=== PATIENT | male | born 1995 | race Caucasian/White ===

== ENCOUNTER 2017-01-02 02:19 | Emergency (ER) | payer BC ==
[2017-01-02] MEDS ORDERED: NORMAL SALINE 1000 ML 1,000 ML IV ONE (04:05)
[2017-01-02] MEDS ORDERED: METHYLPREDNISOLONE INJ 125 MG/2 ML SDV IV ONE (04:06)
[2017-01-02] MEDS ORDERED: KETOROLAC TROMETHAMINE INJ/PF 30 MG/1 ML SDV IV ONE (04:06)
--- NOTE | 2017-01-02 04:57 | ER Document Report ---
ED General - General Chief Complaint: Headache >24 hrs old Stated Complaint: HEADACHE Mode of Arrival: Ambulatory Information source: Patient TRAVEL OUTSIDE OF THE [place] IN LAST 30 DAYS: No - HPI Notes: Patient is a 21-year-old male presents to the emergency department with report of headache that he's had every evening for the past week right sided with occasional tearing from the right eye. The patient denies any head injury, and states the headache will completely resolve itself in between episodes. The patient does report some previous mild headaches in the past, and he has a previous visit for headache in the past in the emergency department. The patient reports that he drank alcohol earlier in the evening and one of the night earlier in the week he drank a small amount of alcohol, but he does not drink every day. Patient denies any fever or chills. He reports no head injury. He denies any focal numbness, weakness, paresthesia. No neck stiffness. No sinus pain or discomfort. - Related Data Allergies/Adverse Reactions: acetaminophen [From Vicodin] Adverse Reaction (Mild, Verified 04/20/15 00:25) Nausea hydrocodone bitartrate [From Vicodin] Adverse Reaction (Mild, Verified 04/20/15 00:25) Nausea Past Medical History - General Information source: Patient - Social History Smoking Status: Unknown if Ever Smoked Frequency of alcohol use: Occasional Drug Abuse: None Lives with: Family Family History: Reviewed & Not Pertinent Patient has suicidal ideation: No Patient has homicidal ideation: No Pulmonary Medical History: Reports: Hx Bronchitis, Hx Pneumonia - as child Neurological Medical History: Reports: Hx Seizures - epilepsy Renal/ Medical History: Denies: Hx Peritoneal Dialysis - Immunizations Hx Diphtheria, Pertussis, Tetanus Vaccination: Yes Review of Systems - Review of Systems Notes: REVIEW OF SYSTEMS: CONSTITUTIONAL : Denies fever, chills, or sweats. Denies recent illness. EENT: Denies ear, throat, or mouth pain or symptoms. Denies nasal or sinus congestion or discharge. Denies throat, tongue, or mouth swelling or difficulty swallowing. CARDIOVASCULAR: Denies chest pain. Denies palpitations or racing or irregular heart beat. Denies ankle edema. RESPIRATORY: Denies cough, cold, or chest congestion. Denies shortness of breath, difficulty breathing, or wheezing. GASTROINTESTINAL: Denies abdominal pain or distention. Denies nausea, vomiting , or diarrhea. Denies blood in vomitus, stools, or per rectum. Denies black, tarry stools. Denies constipation. GENITOURINARY: Denies difficulty urinating, painful urination, burning, frequency, blood in urine, or discharge. MUSCULOSKELETAL: Denies back or neck pain or stiffness. Denies joint pain or swelling. SKIN: Denies rash, lesions or sores. HEMATOLOGIC : Denies easy bruising or bleeding. LYMPHATIC: Denies swollen, enlarged glands. NEUROLOGICAL: Denies confusion or altered mental status. Denies passing out or loss of consciousness. Denies dizziness or lightheadedness. Denies weakness or paralysis or loss of use of either side. Denies problems with gait or speech. Denies sensory loss, numbness, or tingling. Denies seizures. PSYCHIATRIC: Denies anxiety or stress. Denies depression, suicidal ideation, or homicidal ideation. ALL OTHER SYSTEMS REVIEWED AND NEGATIVE. Dictation was performed using [employer] voice recognition software Physical Exam - Vital signs Vitals: Temp Pulse Resp BP Pulse Ox 98.4 F 100 18 153/90 H 100 01/02/17 02:33 01/02/17 02:33 01/02/17 02:33 01/02/17 02:33 01/02/17 02:33 - Notes Notes: PHYSICAL EXAMINATION: GENERAL: Well-appearing, well-nourished and in no acute distress. HEAD: Atraumatic, normocephalic. EYES: Pupils equal round and reactive to light, extraocular movements intact, sclera anicteric, conjunctiva are normal. Patient localizes the headache as right frontal in location, but there is no specific sinus tenderness. No erythema or suggestion for shingles or other abnormality. Anterior chambers are within normal limits and are not shallow. Anterior chambers are clear. Gross vision is intact. ENT: Nares patent, oropharynx clear without exudates. Moist mucous membranes. No nasal turbinate swelling. NECK: Normal range of motion, supple without lymphadenopathy LUNGS: Breath sounds clear to auscultation bilaterally and equal. No wheezes rales or rhonchi. HEART: Regular rate and rhythm without murmurs ABDOMEN: Soft, nontender, nondistended abdomen. No guarding, no rebound. No masses appreciated. Musculoskeletal: Normal range of motion, no pitting or edema. No cyanosis. NEUROLOGICAL: Cranial nerves grossly intact. Normal speech, normal gait. Normal sensory, motor exams PSYCH: Normal mood, normal affect. SKIN: Warm, Dry, normal turgor, no rashes or lesions noted. Course - Re-evaluation Re-evalutation: 01/02/17 05:10 Patient was placed on oxygen. Patient drove himself to the emergency department , so the patient was given IV Toradol and Solu-Medrol. Normal saline bolus was given. Question cluster headache given the episodic nature in this white male with report also previous tearing associated with a right sided headache. 01/02/17 06:34 Care turned over to Dr. Vicente. - Vital Signs Vital signs: Temp Pulse Resp BP Pulse Ox 98.4 F 100 18 153/90 H 100 01/02/17 02:33 01/02/17 02:33 01/02/17 02:33 01/02/17 02:33 01/02/17 02:33 - Laboratory Result Diagrams: 01/02/17 05:54 01/02/17 05:54 Discharge - Discharge Clinical Impression: Cluster headache Qualifiers: Headache chronicity pattern: unspecified pattern Intractability: not intractable Qualified Code(s): G44.009 - Cluster headache syndrome, unspecified , not intractable Condition: Stable Disposition: HOME, SELF-CARE Prescriptions: Tramadol HCl 50 mg PO Q4HP PRN #20 tablet PRN Reason: Prochlorperazine Maleate [Compazine 10 mg Tablet] 10 mg PO Q6HP PRN #10 tablet PRN Reason: Prednisone [Deltasone 10 mg Tablet] 10 mg PO ASDIR PRN #21 tablet PRN Reason:
[2017-01-02 06:22] LABS: ABSOLUTE BASOPHILS # (AUTO) 0.1 10^3/uL (0.0-0.2); ABSOLUTE EOSINOPHILS # (AUTO) 0.1 10^3/uL (0.0-0.6); ABSOLUTE LYMPHOCYTES (AUTO) 3.7 10^3/uL (0.5-4.7); ABSOLUTE MONOCYTES (AUTO) 0.8 10^3/uL (0.1-1.4); ABSOLUTE NEUT (AUTO) 4.6 10^3/uL (1.7-8.2); BASOPHILS % (AUTO) 0.6 % (0-2); EOSINOPHILS % (AUTO) 0.8 % (0-6); HEMOGLOBIN 16.4 g/dL (13.5-17.0); HGB HCT DIFFERENCE 3.2; LYMPHOCYTES % (AUTO) 39.8 % (13-45); MEAN CORPUSCULAR HEMOGLOBIN 31.1 pg (27.0-33.4); MEAN CORPUSCULAR HGB CONC 35.7 g/dL (32.0-36.0); MEAN CORPUSCULAR VOLUME 87 fl (80-97); MONOCYTES % (AUTO) 8.3 % (3-13); RED BLOOD COUNT 5.27 10^6/uL (4.35-5.55); RED CELL DISTRIBUTION WIDTH 12.5 % (11.5-14.0); SEGMENTED NEUTROPHILS % (AUTO) 50.5 % (42-78); WHITE BLOOD COUNT 9.2 10^3/uL (4.0-10.5)
[2017-01-02 06:35] LABS: ALANINE AMINOTRANSFERASE 58 U/L (21-72); ALBUMIN 4.8 g/dL (3.5-5.0); ALCOHOL 40 mg/dL (NONE DETECTED); ALKALINE PHOSPHATASE 71 U/L (38-126); ANION GAP 16 (5-19); ASPARTATE AMINO TRANSFERASE 35 U/L (17-59); BILIRUBIN,DIRECT 0.3 mg/dL (0.0-0.4); BLOOD UREA NITROGEN 10 mg/dL (7-20); CARBON DIOXIDE 25 mmol/L (22-30); CHLORIDE 102 mmol/L (98-107); CREATININE RESULT 0.66 mg/dL (0.52-1.25); GLUCOSE 93 mg/dL (75-110); MAGNESIUM 1.8 mg/dL (1.6-2.3); POTASSIUM 4.5 mmol/L (3.6-5.0); SODIUM 142.9 mmol/L (137-145)
[2017-01-02 06:55] LABS: ERYTHROCYTE SEDIMENTATION RATE 4 mm/hr (0-15)
[2017-01-02] MEDS ORDERED: DIVALPROEX SODIUM 250 MG TAB.SR.24H PO ONE (07:48)
[2017-01-02 09:23] VITALS: BP 150/101
== END 2017-01-02 08:40 | disposition home or self-care (01) ==
LOC: ER 02:19
DX: G44.009 Cluster headache syndrome, unspecified, not intractable (principal)
CPT/HCPCS: 99284; 96374; 96375; 36415; 80307; 83735; 85025; 85652; 80053; 80164; 70450; J2930; J1885; J3490; J7030

== ENCOUNTER 2018-12-25 13:31 | Emergency (ER) | payer MEDICAID ==
[2018-12-25] MEDS ORDERED: ONDANSETRON HCL INJ/PF 4 MG/2 ML SDV IV ONE (15:03)
[2018-12-25] MEDS ORDERED: NORMAL SALINE 1000 ML 1,000 ML IV ONE (15:03)
--- NOTE | 2018-12-25 15:05 | ER Document Report ---
ED Medical Screen (RME) - General Chief Complaint: Abdominal Pain Stated Complaint: BACK PAIN Time Seen by Provider: 12/25/18 15:02 Mode of Arrival: Ambulatory Information source: Patient Notes: Patient presents complaining of low back pain and generalized abdominal pain for the past week with nausea. Patient was seen and treated for strep yesterday with amoxicillin. Patient denies any fever. Patient also reports occasional pain that radiates into the scrotum. I have greeted and performed a rapid initial assessment of this patient. A comprehensive ED assessment and evaluation of the patient, analysis of test results and completion of the medical decision making process will be conducted by additional ED providers. TRAVEL OUTSIDE OF THE [place] IN LAST 30 DAYS: No - Related Data Allergies/Adverse Reactions: acetaminophen [From Vicodin] Adverse Reaction (Mild, Verified 12/25/18 13:35) Nausea hydrocodone bitartrate [From Vicodin] Adverse Reaction (Mild, Verified 12/25/18 13:35) Nausea Past Medical History Pulmonary Medical History: Reports: Hx Bronchitis, Hx Pneumonia - as child Neurological Medical History: Reports: Hx Seizures - epilepsy Renal/ Medical History: Denies: Hx Peritoneal Dialysis - Immunizations Hx Diphtheria, Pertussis, Tetanus Vaccination: Yes Physical Exam - Vital signs Vitals: Temp Pulse Resp BP Pulse Ox 98.2 F 113 H 20 149/93 H 99 12/25/18 14:09 12/25/18 14:09 12/25/18 14:12/25/18 14:09 12/25/18 14:09 - Cardiovascular Rhythm: Tachycardia Heart sounds: S1 appreciated, S2 appreciated - Abdominal Tenderness: Tender - Generalized abdomen Course - Vital Signs Vital signs: Temp Pulse Resp BP Pulse Ox 98.2 F 113 H 20 149/93 H 99 12/25/18 14:09 12/25/18 14:09 12/25/18 14:12/25/18 14:12/25/18 14:09
[2018-12-25 15:45] LABS: ABSOLUTE EOSINOPHILS # (AUTO) 0.1 10^3/uL (0.0-0.6); ABSOLUTE LYMPHOCYTES (AUTO) 3.1 10^3/uL (0.5-4.7); ABSOLUTE MONOCYTES (AUTO) 1.2 10^3/uL (0.1-1.4); ABSOLUTE NEUT (AUTO) 2.8 10^3/uL (1.7-8.2); BASOPHILS % (AUTO) 0.7 % (0-2); HEMATOCRIT 45.9 % (37.9-51.0); HEMOGLOBIN 16.2 g/dL (13.5-17.0); LYMPHOCYTES % (AUTO) 42.6 % (13-45); MEAN CORPUSCULAR HGB CONC 35.4 g/dL (32.0-36.0); MEAN CORPUSCULAR VOLUME 88 fl (80-97); MONOCYTES % (AUTO) 16.1 % (3-13); PLATELET COUNT 285 10^3/uL (150-450); RED BLOOD COUNT 5.23 10^6/uL (4.35-5.55); RED CELL DISTRIBUTION WIDTH 12.3 % (11.5-14.0); SEGMENTED NEUTROPHILS % (AUTO) 39.6 % (42-78); TOTAL CELLS COUNTED % (AUTO) 100 %; WHITE BLOOD COUNT 7.2 10^3/uL (4.0-10.5)
[2018-12-25 15:58] LABS: APPEARANCE,URINE CLEAR; BILIRUBIN,URINE NEGATIVE (NEGATIVE); COLOR,URINE YELLOW; GLUCOSE, URINE NEGATIVE (NEGATIVE); KETONES,URINE TRACE mg/dL (NEGATIVE); LEUKOCYTE ESTERASE,URINE NEGATIVE (NEGATIVE); NITRITE,URINE NEGATIVE (NEGATIVE); PROTEIN,URINE 30 mg/dL (NEGATIVE); URINE SPECIFIC GRAVITY 1.021
[2018-12-25 16:06] LABS: ALANINE AMINOTRANSFERASE 121 U/L (21-72); ALBUMIN 4.7 g/dL (3.5-5.0); ALKALINE PHOSPHATASE 93 U/L (38-126); ANION GAP 16 (5-19); ASPARTATE AMINO TRANSFERASE 62 U/L (17-59); BILIRUBIN,DIRECT 0.3 mg/dL (0.0-0.4); BLOOD UREA NITROGEN 8 mg/dL (7-20); CARBON DIOXIDE 23 mmol/L (22-30); CHLORIDE 104 mmol/L (98-107); GLUCOSE 98 mg/dL (75-110); LIPASE 43.7 U/L (23-300); POTASSIUM 4.8 mmol/L (3.6-5.0); SODIUM 142.6 mmol/L (137-145); TOTAL PROTEIN 8.3 g/dL (6.3-8.2)
[2018-12-25 17:29] LABS: CHLAM PCR NOT DETECTED (NOT DETECT); GON PCR NOT DETECTED (NOT DETECT)
--- NOTE | 2018-12-25 18:57 | RADIOLOGY REPORT (SQ) ---
EXAM DESCRIPTION: U/S SCROTUM W/DOPPLER COMPLETED DATE/TIME: 12/25/2018 6:41 pm REASON FOR STUDY: scrotal pain COMPARISON: None. TECHNIQUE: Static and realtime lauren scale imaging of the scrotum and testes. Selected color Doppler and spectral images recorded to document blood flow. LIMITATIONS: None. FINDINGS: RIGHT: TESTICLE: Normal size. Normal echotexture. Normal blood flow. No mass. EPIDIDYMIS: Normal. HYDROCELE OR VARICOCELE: No. HERNIA OR EXTRA-TESTICULAR MASS: No. OTHER: No other significant finding. LEFT: TESTICLE: Normal size. Normal echotexture. Normal blood flow. No mass. EPIDIDYMIS: Normal. HYDROCELE OR VARICOCELE: Small left varicocele. No hydrocele. HERNIA OR EXTRA-TESTICULAR MASS: No. OTHER: No other significant finding. IMPRESSION: Small left varicocele.. NO EVIDENCE OF TESTICULAR MASS OR TORSION. TECHNICAL DOCUMENTATION: JOB ID: [id number] [place]-72 2010 [employer]- All Rights Reserved Reading location - IP/workstation name: [email or web address]
--- NOTE | 2018-12-25 19:28 | ER Document Report ---
ED General - General Chief Complaint: Abdominal Pain Stated Complaint: BACK PAIN Time Seen by Provider: 12/25/18 15:02 Primary Care Provider: HALI MILLAN MD [Primary Care Provider] - Follow up as needed Mode of Arrival: Ambulatory TRAVEL OUTSIDE OF THE [place] IN LAST 30 DAYS: No - HPI Notes: Patient is a 23-year-old male who presents to the emergency department for evaluation of abdominal pain and scrotal pain. He states it has been present for about a week, the scrotal pain started recently. He was recently diagnosed with strep throat. He states his son has it. He did not have a swab. He had one episode of emesis yesterday. Normal bowel movements. Normal urination, he states he may be urinating a little more frequently. He states he is still eating and drinking. He has some pain that he says is worse on the right side of his abdomen, but states there are no aggravating or relieving factors. - Related Data Allergies/Adverse Reactions: acetaminophen [From Vicodin] Adverse Reaction (Mild, Verified 12/25/18 13:35) Nausea hydrocodone bitartrate [From Vicodin] Adverse Reaction (Mild, Verified 12/25/18 13:35) Nausea Past Medical History - General Information source: Patient - Social History Smoking Status: Current Every Day Smoker Chew tobacco use (# tins/day): No Frequency of alcohol use: Social Drug Abuse: None Family History: Reviewed & Not Pertinent Patient has suicidal ideation: No Patient has homicidal ideation: No - Past Medical History Cardiac Medical History: Reports: Hx Hypercholesterolemia, Hx Hypertension Pulmonary Medical History: Reports: Hx Bronchitis, Hx Pneumonia - as child Neurological Medical History: Reports: Hx Seizures - epilepsy Renal/ Medical History: Denies: Hx Peritoneal Dialysis - Immunizations Hx Diphtheria, Pertussis, Tetanus Vaccination: Yes Review of Systems - Review of Systems Constitutional: No symptoms reported EENT: See HPI Cardiovascular: No symptoms reported Respiratory: No symptoms reported Gastrointestinal: See HPI Genitourinary: No symptoms reported Male Genitourinary: No symptoms reported Musculoskeletal: No symptoms reported Skin: No symptoms reported Neurological/Psychological: No symptoms reported Physical Exam - Vital signs Vitals: Temp Pulse Resp BP Pulse Ox 98.2 F 113 H 20 149/93 H 99 12/25/18 14:09 12/25/18 14:09 12/25/18 14:09 12/25/18 14:09 12/25/18 14:09 - Notes Notes: Vital signs reviewed, please refer to chart. Patient is normocephalic, atraumatic. Pupils equal round, reactive to light. Neck is supple without meningismus. Heart is regular rate and rhythm. Lungs are clear to auscultation bilaterally. Abdomen is soft, diffusely tender but no rebound or guarding, normoactive bowel sounds throughout. Extremities without cyanosis, clubbing, edema. Peripheral pulses are equal. Skin is warm and dry. Patient is awake, alert, neurological exam is nonfocal. Examination of the genitalia reveals 2 descended testicles. He has diffuse testicular tenderness bilaterally. He is not focally tender over the epididymis. No erythema or overlying lesions. No inguinal hernias that I can palpate. Intact cremasteric reflex. Course - Re-evaluation Re-evalutation: 12/25/18 19:21 Patient presents to the emergency department for evaluation. Laboratory investigations, imaging ordered as through triage. No significant positive findings. Did have a very mild elevation in his but only AST and ALT. Ultr asound failed to reveal any acute signs of torsion or infection. Urinalysis was unremarkable. GC chlamydia unremarkable. At this point I do not have a clear etiology for this patient's abdominal or scrotal pain. He is still eating and drinking. Serial abdominal exams are benign. It was explained to the patient that any worsening or persistence of his symptoms to prompt him to return to the emergency department. He voiced understanding to this and was discharged. 12/25/18 19:29 - Vital Signs Vital signs: Temp Pulse Resp BP Pulse Ox 98.2 F 113 H 20 149/93 H 99 12/25/18 14:09 12/25/18 14:09 12/25/18 14:09 12/25/18 14:09 12/25/18 14:09 - Laboratory Result Diagrams: 12/25/18 15:32 12/25/18 15:32 Laboratory results interpreted by me: 12/25/18 12/25/18 12/25/18 15:23 15:32 15:32 Seg Neutrophils % 39.6 L Monocytes % 16.1 H AST 62 H ALT 121 H Total Protein 8.3 H Urine Protein 30 H Urine Ketones TRACE H Urine Urobilinogen 4.0 H Discharge - Discharge Clinical Impression: Right lower quadrant abdominal pain, Testicular pain Abdominal pain Qualifiers: Abdominal location: right upper quadrant Qualified Code(s): R10.11 - Right upper quadrant pain Condition: Stable Disposition: HOME, SELF-CARE Instructions: Abdominal Pain ([facility]) Additional Instructions: No clear cause was found for your pain today. If your pain persists, or certainly if it worsens, return to the emergency department. Otherwise follow- up with primary care next week. Forms: Elevated Blood Pressure Referrals: HALI MILLAN MD [Primary Care Provider] - Follow up as needed
[2018-12-25 19:57] VITALS: BP 142/89
== END 2018-12-25 19:57 | disposition home or self-care (01) ==
LOC: ER 13:31
DX: R10.31 Right lower quadrant pain (principal); N50.82 Scrotal pain; R10.11 Right upper quadrant pain; R10.9 Unspecified abdominal pain; F17.200 Nicotine dependence, unspecified, uncomplicated; I10 Essential (primary) hypertension
CPT/HCPCS: 99284; 96361; 96374; 36415; 83690; 85025; 80053; 81001; 87491; 87591; 76870; 93976; J2405; J7030

== ENCOUNTER 2019-01-11 11:36 | Day surgery (SDC) | payer MEDICAID ==
[~2019-01-11 11:36] MED LIST: PROPOFOL INJ 200 MG/20 ML VIAL IV ONE
[2019-01-11 12:38] VITALS: BP 145/78
--- NOTE | 2019-01-11 12:53 | Operative Report ---
Operative Report DATE OF SURGERY: 01/11/19 Operative Report: The risks benefits and alternatives of the procedure explained to the patient in detail and informed consent is obtained.A GIF Olympus video scope was inserted into the patient's mouth and hypopharynx, the esophagus is identified intubated and insufflated ,the scope was then advanced through the esophagus stomach and duodenum, retroflexion maneuver is done, the esophagus stomach and first and second portions of the duodenum examined. PREOPERATIVE DIAGNOSIS: Gastroesophageal reflux disease. Family history of esophageal cancer POSTOPERATIVE DIAGNOSIS: Esophagitis versus Crowe's status post biopsy. Ga stritis status post biopsy OPERATION: EGD with biopsy SURGEON: JHOAN RODRIGUEZ ANESTHESIA: LMAC TISSUE REMOVED OR ALTERED: As noted above. COMPLICATIONS: None. ESTIMATED BLOOD LOSS: None. INTRAOPERATIVE FINDINGS: As noted above. PROCEDURE: Patient tolerated the procedure well. No immediate postprocedure complications are noted. Patient discharged in good condition. Discharge date 01/11/2019. Discharge diet: Regular. Discharge activity: Regular. 2 to 3-week follow-up to discuss findings. Patient is instructed to call the office or proceed to the emergency room should there be any further questions. Wait on the pathology.
== END 2019-01-11 12:45 | disposition home or self-care (01) ==
LOC: END 11:36
PROVIDERS: ATTEND Internal Medicine Gastroenterology
DX: K21.0 Gastro-esophageal reflux disease with esophagitis (principal); K29.50 Unspecified chronic gastritis without bleeding; Z80.0 Family history of malignant neoplasm of digestive organs; F17.210 Nicotine dependence, cigarettes, uncomplicated; Z79.899 Other long term (current) drug therapy; Z88.5 Allergy status to narcotic agent
CPT/HCPCS: 43239; 88342 ×2; 88305 ×2; J2704

== ENCOUNTER 2019-03-08 07:42 | Day surgery (SDC) | payer BC, MEDICAID ==
[2019-03-08] MEDS ORDERED: PROPOFOL INJ 200 MG/20 ML VIAL IV ONE (08:15)
--- NOTE | 2019-03-08 08:29 | Operative Report ---
Operative Report DATE OF SURGERY: 03/08/19 Operative Report: The risks benefits and alternatives of the procedure explained to the patient in detail and informed consent is obtained.A GIF Olympus video scope was inserted into the patient's mouth and hypopharynx, the esophagus is identified intubated and insufflated, the scope was then advanced through the esophagus stomach and duodenum ,retroflexion maneuver is done, the esophagus stomach and first and second portions of the duodenum examined. PREOPERATIVE DIAGNOSIS: Crowe's esophagus POSTOPERATIVE DIAGNOSIS: Crowe's esophagus status post radiofrequency ablation OPERATION: EGD with radiofrequency ablation SURGEON: JHOAN RODRIGUEZ ANESTHESIA: LMAC TISSUE REMOVED OR ALTERED: None. COMPLICATIONS: None. ESTIMATED BLOOD LOSS: None. INTRAOPERATIVE FINDINGS: As noted above. PROCEDURE: Patient tolerated the procedure well. No immediate postprocedure complications are noted. Patient is discharged in good condition. Discharge date 03/08/2019. Discharge diet: Regular. Discharge activity: Regular. 2 to 3-week follow-up to discuss findings. 1 year surveillance EGD.
[2019-03-08 08:48] VITALS: BP 148/80
== END 2019-03-08 09:00 | disposition home or self-care (01) ==
LOC: END 07:42
PROVIDERS: ATTEND Internal Medicine Gastroenterology
DX: K22.719 Barrett's esophagus with dysplasia, unspecified (principal); I10 Essential (primary) hypertension; G40.909 Epilepsy, unspecified, not intractable, without status epilepticus; F17.210 Nicotine dependence, cigarettes, uncomplicated; Z79.899 Other long term (current) drug therapy
CPT/HCPCS: 43270; J2704

== ENCOUNTER 2020-02-29 14:08 | Emergency (ER) | payer BC, MEDICAID ==
--- NOTE | 2020-02-29 14:36 | ER Document Report ---
ED Medical Screen (RME) - General Chief Complaint: Abdominal Pain Stated Complaint: ABDOMINAL PAIN,LIGHTHEADED Time Seen by Provider: 02/29/20 14:29 Primary Care Provider: LAYA GLYNN FNP-C [Primary Care Provider] - Follow up as needed TRAVEL OUTSIDE OF THE [place] IN LAST 30 DAYS: No - HPI Notes: 02/29/20 14:34 24-year-old male with a history of hypertension and GERD presents to the emergency room for complaints of abdominal pain for the last 4 days with watery stool. States he has generalized abdominal pain comes and goes, worse after eating. Patient states that he has intermittent bloating along with his abdominal pain. Tried an antidiarrheal over the weekend without relief. Denies a history of IBS or Crohn's. Denies any fevers or chills, denies any new foods, medication or travel outside of the country. Does not have a primary care provider to follow-up with. Has been eating a bland diet but noticed before he ate a bland diet that his symptoms are worse after eating fatty foods. Patient does take omeprazole daily. I have greeted and performed a rapid initial assessment of this patient. A comprehensive ED assessment and evaluation of the patient, analysis of test results and completion of the medical decision making process will be conducted by additional ED providers. PHYSICAL EXAMINATION: GENERAL: Well-appearing, well-nourished and in no acute distress. NECK: Normal range of motion CV: s1, s2 regular LUNGS: No respiratory distress abd: generalized abd pain - Related Data Allergies/Adverse Reactions: hydrocodone bitartrate [From Vicodin] Adverse Reaction (Mild, Verified 03/01/19 13:59) Nausea Home Medications: depakote, omeprazole, metoprolol. Past Medical History - Social History Frequency of alcohol use: Rare Drug Abuse: None - Past Medical History Cardiac Medical History: Reports: Hx Hypercholesterolemia, Hx Hypertension Denies: Hx Coronary Artery Disease, Hx Heart Attack Pulmonary Medical History: Denies: Hx Asthma, Hx Bronchitis, Hx COPD, Hx Pneumonia Neurological Medical History: Reports: Hx Seizures - EPILEPSY. Denies: Hx Cerebrovascular Accident Renal/ Medical History: Denies: Hx Peritoneal Dialysis Musculoskeltal Medical History: Denies Hx Arthritis - Immunizations Hx Diphtheria, Pertussis, Tetanus Vaccination: Yes - UNSURE WHEN Physical Exam - Vital signs Vitals: Temp Pulse Resp BP Pulse Ox 98.4 F 94 16 168/98 H 99 02/29/20 14:18 02/29/20 14:18 02/29/20 14:18 02/29/20 14:18 02/29/20 14:18 Course - Vital Signs Vital signs: Temp Pulse Resp BP Pulse Ox 98.4 F 94 16 168/98 H 99 02/29/20 14:18 02/29/20 14:18 02/29/20 14:18 02/29/20 14:18 02/29/20 14:18 Doctor's Discharge - Discharge Referrals: LAYA GLYNN, [employer] ENGINEER-C [Primary Care Provider] - Follow up as needed
[2020-02-29 15:10] LABS: ABSOLUTE EOSINOPHILS # (AUTO) 0.1 10^3/uL (0.0-0.6); ABSOLUTE LYMPHOCYTES (AUTO) 3.7 10^3/uL (0.5-4.7); ABSOLUTE MONOCYTES (AUTO) 1.1 10^3/uL (0.1-1.4); ABSOLUTE NEUT (AUTO) 5.4 10^3/uL (1.7-8.2); BASOPHILS % (AUTO) 0.4 % (0-2); EOSINOPHILS % (AUTO) 1.1 % (0-6); HEMATOCRIT 46.3 % (37.9-51.0); HEMOGLOBIN 16.2 g/dL (13.5-17.0); LYMPHOCYTES % (AUTO) 35.6 % (13-45); MEAN CORPUSCULAR HEMOGLOBIN 30.6 pg (27.0-33.4); MEAN CORPUSCULAR HGB CONC 34.9 g/dL (32.0-36.0); MEAN CORPUSCULAR VOLUME 88 fl (80-97); MONOCYTES % (AUTO) 10.7 % (3-13); PLATELET COUNT 325 10^3/uL (150-450); RED BLOOD COUNT 5.29 10^6/uL (4.35-5.55); RED CELL DISTRIBUTION WIDTH 12.4 % (11.5-14.0); SEGMENTED NEUTROPHILS % (AUTO) 52.2 % (42-78); TOTAL CELLS COUNTED % (AUTO) 100 %; WHITE BLOOD COUNT 10.3 10^3/uL (4.0-10.5)
[2020-02-29 15:15] LABS: APPEARANCE,URINE CLEAR; BILIRUBIN,URINE NEGATIVE (NEGATIVE); COLOR,URINE YELLOW; GLUCOSE, URINE NEGATIVE (NEGATIVE); KETONES,URINE 20 mg/dL (NEGATIVE); LEUKOCYTE ESTERASE,URINE NEGATIVE (NEGATIVE); NITRITE,URINE NEGATIVE (NEGATIVE); PROTEIN,URINE 30 mg/dL (NEGATIVE); URINE SPECIFIC GRAVITY 1.015; UROBILINOGEN,URINE NEGATIVE mg/dL (<2.0)
[2020-02-29 15:25] LABS: ALBUMIN 4.8 g/dL (3.5-5.0); ALKALINE PHOSPHATASE 92 U/L (38-126); ANION GAP 11 (5-19); ASPARTATE AMINO TRANSFERASE 45 U/L (17-59); BILIRUBIN,DIRECT 0.1 mg/dL (0.0-0.4); BLOOD UREA NITROGEN 10 mg/dL (7-20); CARBON DIOXIDE 24 mmol/L (22-30); CHLORIDE 101 mmol/L (98-107); GLUCOSE 85 mg/dL (75-110); POTASSIUM 4.7 mmol/L (3.6-5.0); TOTAL PROTEIN 8.5 g/dL (6.3-8.2)
--- NOTE | 2020-02-29 19:26 | ER Document Report ---
Doctor's Note Notes: 02/29/20 19:26 Radiologist called stating there are abnormalities on patient's abdomen pelvis CT, charge nurse made aware of patient's need to be moved to a room for full evaluation in the back by a physician.
--- NOTE | 2020-02-29 19:33 | RADIOLOGY REPORT (SQ) ---
EXAM DESCRIPTION: CT ABD/PELVIS WITH IV ONLY IMAGES COMPLETED DATE/TIME: 02/29/2020 7:04 pm REASON FOR STUDY: diffuse abd pain x4days, watery stools. no fevers COMPARISON: None. TECHNIQUE: CT scan of the abdomen and pelvis performed using helical scanning technique with dynamic intravenous contrast injection. No oral contrast. Images reviewed with lung, soft tissue, and bone windows. Reconstructed coronal and sagittal MPR images reviewed. Delayed images for evaluation of the urinary system also acquired. All images stored on PACS. All CT scanners at this facility use dose modulation, iterative reconstruction, and/or weight based d osing when appropriate to reduce radiation dose to as low as reasonably achievable (ALARA). [facility]: Dose Right [facility]: CareDose [facility]: Dose Right [facility]: Teradose 4D [facility]: BrainMass CONTRAST TYPE AND DOSE: contrast/concentration: Isovue 350.00 mmol/ml; Total Contrast Delivered: 100 .0 ml; Total Saline Delivered: 61.6 ml RENAL FUNCTION: None required. The patient is less than 50 years old. RADIATION DOSE: CT Rad equipment meets quality standard of care and radiation dose reduction techniq ues were employed. CTDIvol: 16.8 - 20.0 mGy. DLP: 2258 mGy-cm.. LIMITATIONS: None. FINDINGS: LOWER CHEST: No significant findings. No nodules or infiltrates. LIVER: Fatty liver. No dilated ducts. The hepatic and portal veins are patent. SPLEEN: Normal size. No focal lesions. PANCREAS: No masses. No significant calcifications. No adjacent inflammation or peripancreatic fluid collections. Pancreatic duct not dilated. GALLBLADDER: No identified stones by CT criteria. No inflammatory changes to suggest cholecystitis. ADRENAL GLANDS: No significant masses or asymmetry. RIGHT KIDNEY AND URETER: No solid masses. No significant calcifications. No hydronephrosis or hyd roureter. LEFT KIDNEY AND URETER: No solid masses. No significant calcifications. No hydronephrosis or hydr oureter. AORTA AND VESSELS: No aneurysm. No dissection. Renal arteries, SMA, celiac without stenosis. RETROPERITONEUM: Multiple borderline to mildly prominent mesenteric lymph nodes with some of the lar gest measuring 18.0 mm in short axis diameter. No hemorrhage. BOWEL AND PERITONEAL CAVITY: Abnormal appearance to the terminal ileum in the right lower quadrant o f the abdomen with enhancement of the wall and and marked thickening. Colonic diverticulosis, more so in the sigmoid colon, without evidence of diverticulitis. No free fl uid. APPENDIX: Normal. PELVIS: Prostate gland measures 4.3 cm in diameter. Multiple nonenlarged bilateral superficial femor al triangle lymph nodes. Superficial bilateral triangle lymph nodes. Free fluid. Bladder normal. ABDOMINAL WALL: No masses. No hernias. BONES: No significant or acute findings. OTHER: No other significant finding. IMPRESSION: 1. Abnormal appearing terminal ileum which demonstrates marked diffuse thickened wall w ith enhancement. Multiple borderline to mildly prominent mesenteric lymph nodes. Differential diagn osis for these findings include inflammatory/infectious etiologies, with lymphoproliferative disorder s not entirely excluded. Correlation suggested. 2. Colonic diverticulosis, more so in the sigmoid colon without evidence of diverticulitis. 3. Fatty liver. 4. Additional findings as above. COMMENT: 1. The results of this examination were discussed with emergency department provider on and 19:26 hours. TECHNICAL DOCUMENTATION: JOB ID: [id number] Quality ID # [id number]: Final reports with documentation of one or more dose reduction techniques (e.g., Au tomated exposure control, adjustment of the mA and/or kV according to patient size, use of iterative reconstruction technique) 2010 [employer]- All Rights Reserved Reading location - IP/workstation name: [email or web address]
--- NOTE | 2020-02-29 20:50 | ER Document Report ---
ED General - General Chief Complaint: Abdominal Pain Stated Complaint: ABDOMINAL PAIN,LIGHTHEADED Time Seen by Provider: 02/29/20 14:29 Primary Care Provider: LAYA GLYNN FNP-C [Primary Care Provider] - Follow up as needed Information source: Patient Notes: 02/29/20 14:20 - ED Nursing Note by KELTON DARBY Accsuzi Num: [id number] : 1995 Patient Age: 24 Pt presents to the ED for c/o abd pain. Pt reports he started with diarrhea and abd cramping 5 days ago. Reports taking anti-diarrheal 3days ago. Pt states he has been having watery stools despite medication. Last BM this morning he states was scant and still watery. Reports c/o "bloating" in his epigastric region and 'gas pains all over' his abdomen; reports pain is exacerbated after eating. Denies any nausea or vomiting. Pt is A&Ox4, breaths e/u, NAD, well- appearing. Pt reports prior h/o similar sxs he states resolved after 2wks, pt did not seek medical care at that time. my notes 24-year-old male arrives with chief complaint of having 5 days of crampy bilateral upper abdominal pains associated with diarrhea. He reports this occurred 2 months ago and lasted for 2 weeks and self resolved. He has a history of GERD and was seen by [facility] and had a camera test that he swallowed in 2019 to evaluate his intestines. He reports when he had a ntibiotics then he had diarrhea. Patient denies any recent antibiotics. His CT today reveals fatty liver and diverticular disease and mesenteric lymph nodes as well as terminal ileus thick with question of inflammatory disease. Patient reports his symptoms are worse with food. Patient does have ketones on his urine and total protein are higher. Patient denies any history of Crohn's disease or inflammatory bowel disease. His cousin does have Crohn's disease. Patient denies having any snakes turtles lizards or other reptiles. He also denies having any birds. He works at [employer]. TRAVEL OUTSIDE OF THE [place] IN LAST 30 DAYS: No - HPI Onset: Last week Onset/Duration: Sudden, Persistent Quality of pain: Achy Severity: Mild Pain Level: 1 Associated symptoms: None Exacerbated by: Food Relieved by: Denies Similar symptoms previously: Yes Recently seen / treated by doctor: No - Related Data Allergies/Adverse Reactions: hydrocodone bitartrate [From Vicodin] Adverse Reaction (Mild, Verified 03/01/19 13:59) Nausea Home Medications: depakote, omeprazole, metoprolol. Past Medical History - General Information source: Patient - Social History Smoking Status: Current Every Day Smoker Cigarette use (# per day): Yes Chew tobacco use (# tins/day): No Smoking Education Provided: Yes Frequency of alcohol use: Rare Drug Abuse: None Lives with: Family Family History: Reviewed & Not Pertinent Patient has suicidal ideation: No Patient has homicidal ideation: No - Past Medical History Cardiac Medical History: Reports: Hx Hypercholesterolemia, Hx Hypertension Denies: Hx Coronary Artery Disease, Hx Heart Attack Pulmonary Medical History: Denies: Hx Asthma, Hx Bronchitis, Hx COPD, Hx Pneumonia Neurological Medical History: Reports: Hx Seizures - EPILEPSY. Denies: Hx Cerebrovascular Accident Renal/ Medical History: Denies: Hx Peritoneal Dialysis Musculoskeletal Medical History: Denies Hx Arthritis - Immunizations Hx Diphtheria, Pertussis, Tetanus Vaccination: Yes - UNSURE WHEN Review of Systems - Review of Systems Constitutional: No symptoms reported EENT: No symptoms reported Cardiovascular: No symptoms reported Respiratory: No symptoms reported Gastrointestinal: See HPI, Abdomen distended, Abdominal pain, Diarrhea, Other - Gas eructation and and flatulence Genitourinary: No symptoms reported Male Genitourinary: No symptoms reported Musculoskeletal: No symptoms reported Skin: No symptoms reported Hematologic/Lymphatic: No symptoms reported Neurological/Psychological: No symptoms reported Physical Exam - Vital signs Vitals: Temp Pulse Resp BP Pulse Ox 98.4 F 94 16 168/98 H 99 02/29/20 14:18 02/29/20 14:18 02/29/20 14:18 02/29/20 14:18 02/29/20 14:18 Interpretation: Hypertensive - General General appearance: Appears well - HEENT Head: Normocephalic, Atraumatic Eyes: Normal Pupils: PERRL Mouth/Lips: Normal Mucous membranes: Normal Pharynx: Normal Neck: Normal - Respiratory Respiratory status: No respiratory distress Chest status: Nontender Breath sounds: Normal Chest palpation: Normal - Cardiovascular Rhythm: Regular Heart sounds: Normal auscultation Murmur: No - Abdominal Inspection: Normal Distension: Distended Bowel sounds: Hyperactive Tenderness: Tender Organomegaly: No organomegaly - Rectal Hemorrhoids: Other - deferrwed - Genitourinary Scrotum: Other - deferred - Back Back: Normal - Extremities General upper extremity: Normal inspection, Nontender, Normal color, Normal ROM, Normal temperature General lower extremity: Normal inspection, Nontender, Normal color, Normal ROM, Normal temperature, Normal weight bearing. No: Scott's sign - Neurological Neuro grossly intact: Yes Cognition: Normal Orientation: AAOx4 [place] Scale Eye Opening: Spontaneous [place] Scale Verbal: Oriented [place] Scale Motor: Obeys Commands [place] Scale Total: 15 Speech: Normal Motor strength normal: LUE, RUE, LLE, RLE Sensory: Normal - Psychological Associated symptoms: Normal affect - Skin Skin Temperature: Warm Skin Moisture: Dry Course - Vital Signs Vital signs: Temp Pulse Resp BP Pulse Ox 98.4 F 94 16 168/98 H 99 02/29/20 14:18 02/29/20 14:18 02/29/20 14:18 02/29/20 14:18 02/29/20 14:18 - Laboratory Result Diagrams: 02/29/20 14:53 02/29/20 14:53 Laboratory results interpreted by me: 02/29/20 02/29/20 14:53 14:53 Sodium 136.4 L ALT 80 H Total Protein 8.5 H Urine Protein 30 H Urine Ketones 20 H Urine Ascorbic Acid 40 H - Diagnostic Test Radiology reviewed: Reports reviewed Critical Care Note - Critical Care Note Total time excluding time spent on procedures (mins): 60 Discharge - Discharge Clinical Impression: Ileus, unspecified, Fatty liver Hypertension Qualifiers: Hypertension type: unspecified Qualified Code(s): I10 - Essential (primary) hypertension Condition: Good Disposition: HOME, SELF-CARE Additional Instructions: Follow-up with [facility] here in [facility]; return to ER as needed take medicines as directed avoid alcohol when t aking Flagyl and Cipro. Make sure you take your metoprolol for your high blood pressure. Pressure was high today in the ER. Also take Questran twice a day as needed for diarrhea but try not to take it with the Flagyl or Cipro it will absorb this. Also take simethicone for abdominal gas. Take this on a as needed basis.; Prescriptions: Ciprofloxacin HCl [Cipro 500 mg Tablet] 500 mg PO BID #20 tablet Metronidazole [Flagyl 500 mg Tablet] 500 mg PO BID #10 tablet Simethicone [Gas Relief 80] 80 mg PO TID PRN #20 cap PRN Reason: Cholestyramine [Questran 4 gm Packet] 4 gm PO MEALSHS PRN 5 Days #10 packet PRN Reason: Diarrhea Referrals: LAYA GLYNN, [facility] [Primary Care Provider] - Follow up as needed
[2020-02-29 21:22] VITALS: BP 137/96
== END 2020-02-29 21:22 | disposition home or self-care (01) ==
LOC: ER 14:08
DX: K56.7 Ileus, unspecified (principal); K76.0 Fatty (change of) liver, not elsewhere classified; R10.84 Generalized abdominal pain; R19.7 Diarrhea, unspecified; E78.00 Pure hypercholesterolemia, unspecified; I10 Essential (primary) hypertension; F17.210 Nicotine dependence, cigarettes, uncomplicated
CPT/HCPCS: 36415; 74177; 80053; 81001; 83690; 85025; 99285

== ENCOUNTER → 2020-09-14 | Outpatient (CLI) | payer MEDICAID ==
--- NOTE | 2020-09-14 12:13 | RADIOLOGY REPORT (SQ) ---
EXAM DESCRIPTION: NM HIDA SCAN WITH CCK IMAGES COMPLETED DATE/TIME: 09/14/2020 9:41 am REASON FOR STUDY: UNSPECIFIED ABDOMINAL PAIN R10.9 UNSPECIFIED ABDOMINAL PAIN COMPARISON: None. RADIONUCLIDE AND DOSE: DOSAGE RADIONUCLIDE: 5.41 millicuries Tc99m Mebrofenin. DOSAGE CCK: 2.4 micrograms. DOSAGE MORPHINE: Not required. The route of agent administration: Intravenous TECHNIQUE: Serial imaging right upper quadrant up to 60 minutes following injection of radionuclide. CCK injected after gallbladder visualized. LIMITATIONS: None. FINDINGS: LIVER: Normal visualization without areas of photopenia. INTRA AND EXTRAHEPATIC BILE DUCTS: Normal accumulation of activity. GALLBLADDER: Normal visualization. Calculated Ejection Fraction of 27%. Below the normal value of 35 % or greater. PHYSICAL RESPONSE: Patients presenting complaint was not reproduced. OTHER: No other significant finding. IMPRESSION: LOW GALLBLADDER EJECTION FRACTION. EVIDENCE FOR BILIARY DYSKINESIS. NO CYSTIC OR COMMO N DUCT OBSTRUCTION. TECHNICAL DOCUMENTATION: JOB ID: [id number] 2010 [employer]- All Rights Reserved Reading location - IP/workstation name: [email or web address]
== END ==
LOC: RAD 07:53
PROVIDERS: ATTEND Nurse Practitioner Primary Care
DX: K82.8 Other specified diseases of gallbladder (principal); R10.9 Unspecified abdominal pain
CPT/HCPCS: 78227; J2805; A9537; Q9969

== ENCOUNTER 2020-09-27 19:48 | Emergency (ER) | payer MEDICAID ==
[2020-09-27] MEDS ORDERED: ONDANSETRON HCL INJ/PF 4 MG/2 ML SDV IV ONE (19:56)
--- NOTE | 2020-09-27 19:58 | ER Document Report ---
ED Medical Screen (RME) - General Stated Complaint: LOWER BACK PAIN Time Seen by Provider: 09/27/20 19:52 Primary Care Provider: LAYA GLYNN FNP-C [Primary Care Provider] - Follow up as needed Notes: Presents complaining of left flank pain that radiates around to the left side and occasionally to the abdomen. Patient reports pain started yesterday. Patient reports nausea without vomiting. Patient denies any urinary symptoms. Patient has underlying history of hypertension, GERD, epilepsy and fatty liver. I have greeted and performed a rapid initial assessment of this patient. A comprehensive ED assessment and evaluation of the patient, analysis of test results and completion of the medical decision making process will be conducted by additional ED providers. TRAVEL OUTSIDE OF THE [place] IN LAST 30 DAYS: No - Related Data Allergies/Adverse Reactions: hydrocodone bitartrate [From Vicodin] Adverse Reaction (Mild, Verified 08/11/20 10:06) Nausea Past Medical History - Past Medical History Cardiac Medical History: Reports: Hx Hypercholesterolemia, Hx Hypertension Denies: Hx Coronary Artery Disease, Hx Heart Attack Pulmonary Medical History: Denies: Hx Asthma, Hx Bronchitis, Hx COPD, Hx Pneumonia Neurological Medical History: Reports: Hx Seizures - EPILEPSY 16 YEARS AGO WAS LAST SEIZURE. Denies: Hx Cerebrovascular Accident Renal/ Medical History: Denies: Hx Peritoneal Dialysis Musculoskeltal Medical History: Denies Hx Arthritis - Immunizations Hx Diphtheria, Pertussis, Tetanus Vaccination: Yes - UNSURE WHEN Physical Exam - Vital signs Vitals: Temp Pulse Resp BP Pulse Ox 97.7 F 97 16 161/97 H 99 09/27/20 19:54 09/27/20 19:54 09/27/20 19:54 09/27/20 19:54 09/27/20 19:54 - Back Back: CVA tenderness - Left flank, left lateral side Course - Vital Signs Vital signs: Temp Pulse Resp BP Pulse Ox 97.7 F 97 16 161/97 H 99 09/27/20 19:54 09/27/20 19:54 09/27/20 19:54 09/27/20 19:54 09/27/20 19:54 Doctor's Discharge - Discharge Referrals: LAYA GLYNN FNP-C [Primary Care Provider] - Follow up as needed
[2020-09-27 20:46] LABS: ABSOLUTE EOSINOPHILS # (AUTO) 0.1 10^3/uL (0.0-0.6); ABSOLUTE LYMPHOCYTES (AUTO) 4.8 10^3/uL (0.5-4.7); ABSOLUTE MONOCYTES (AUTO) 0.8 10^3/uL (0.1-1.4); ABSOLUTE NEUT (AUTO) 3.4 10^3/uL (1.7-8.2); BASOPHILS % (AUTO) 0.5 % (0-2); EOSINOPHILS % (AUTO) 1.4 % (0-6); HEMATOCRIT 44.6 % (37.9-51.0); HEMOGLOBIN 15.7 g/dL (13.5-17.0); LYMPHOCYTES % (AUTO) 51.9 % (13-45); MEAN CORPUSCULAR HEMOGLOBIN 30.7 pg (27.0-33.4); MEAN CORPUSCULAR HGB CONC 35.2 g/dL (32.0-36.0); MEAN CORPUSCULAR VOLUME 87 fl (80-97); MONOCYTES % (AUTO) 8.7 % (3-13); PLATELET COUNT 270 10^3/uL (150-450); RED BLOOD COUNT 5.12 10^6/uL (4.35-5.55); RED CELL DISTRIBUTION WIDTH 13.1 % (11.5-14.0); SEGMENTED NEUTROPHILS % (AUTO) 37.5 % (42-78); TOTAL CELLS COUNTED % (AUTO) 100 %; WHITE BLOOD COUNT 9.2 10^3/uL (4.0-10.5)
[2020-09-27 21:00] LABS: ANION GAP 10 (5-19); BLOOD UREA NITROGEN 9 mg/dL (7-20); CARBON DIOXIDE 24 mmol/L (22-30); CHLORIDE 103 mmol/L (98-107); GLUCOSE 94 mg/dL (75-110); POTASSIUM 4.2 mmol/L (3.6-5.0)
--- NOTE | 2020-09-27 21:14 | RADIOLOGY REPORT (SQ) ---
EXAM DESCRIPTION: CT ABDOMEN PELVIS WITHOUT IV CONTRAST COMPLETED DATE/TME: 09/27/2020 20:35 CLINICAL HISTORY: 25 years, Male, L flank, L side pain COMPARISON: CT from 02/29/2020 TECHNIQUE: Axial images without IV contrast. Sagittal coronal reconstruction. This exam was performed according to our departmental dose-optimization program, which includes automated exposure control, adjustment of the mA and/or kV according to patient size and/or use of iterative reconstruction technique. Images stored on PACS. All CT scanners at this facility use dose modulation, iterative reconstruction, and/or weight based dosing when appropriate to reduce radiation dose to as low as reasonably achievable (ALARA). [facility]: Dose Right [facility]: CareDose [facility]: Dose Right [facility]: Teradose 4D [facility]: Quest Online LIMITATIONS: None. FINDINGS: Lung bases unremarkable. Moderate fatty liver. Spleen, pancreas, biliary system, adrenal glands, aorta and para-aortic regions are unremarkable. No suspicious acute bowel or peritoneal abnormalities. Scattered upper abdominal colonic diverticulosis. CT from 02/29/2020 demonstrated thickening of the terminal ileum and this appears similar on the current study are less obvious because of lack of IV contrast. Kidneys are demonstrated without stones hydronephrosis or swelling. No suspicious focal renal lesions. CT of the pelvis demonstrates contracted urinary bladder. Minimal thickening is probably normal for contraction. Prostate not enlarged. Mild to moderate sigmoid diverticulosis. No free fluid or adenopathy. Bony pelvis is unremarkable. IMPRESSION: 1. Nonspecific nonprominent colonic diverticulosis in the upper abdomen and sigmoid without acute diverticulitis. 2. There is nonspecific thickening of the terminal ileum without surrounding peritoneal abnormalities. Finding is more likely unchanged since 02/19/2020. Was more conspicuous on the previous study because of presence of IV contrast. Significance not clear. Can be further evaluated with MRI. Suggest GI follow-up if not previously done. The finding can be accessed through colonoscopy. 3. Fatty liver. 4. No suspicious renal abnormalities. No acute findings in the abdomen and pelvis.
[2020-09-27 21:37] LABS: APPEARANCE,URINE CLEAR; BILIRUBIN,URINE NEGATIVE (NEGATIVE); COLOR,URINE YELLOW; GLUCOSE, URINE NEGATIVE (NEGATIVE); KETONES,URINE NEGATIVE (NEGATIVE); LEUKOCYTE ESTERASE,URINE NEGATIVE (NEGATIVE); NITRITE,URINE NEGATIVE (NEGATIVE); PROTEIN,URINE NEGATIVE (NEGATIVE); URINE SPECIFIC GRAVITY 1.015; UROBILINOGEN,URINE NEGATIVE mg/dL (<2.0)
[2020-09-27 22:54] VITALS: BP 127/72
[2020-09-27] MEDS ORDERED: ONDANSETRON 4 MG TAB.RAPDIS PO ONE (23:49)
--- NOTE | 2020-09-27 23:50 | ER Document Report ---
ED GI/ - General Chief Complaint: Flank Pain Stated Complaint: LOWER BACK PAIN Time Seen by Provider: 09/27/20 19:52 Primary Care Provider: LAYA GLYNN FNP-C [Primary Care Provider] - Follow up as needed Mode of Arrival: Ambulatory Information source: Patient Notes: 25-year-old male with a past medical history significant for hypertension, epilepsy, GERD presents to the emergency room complaining of left flank pain that started earlier today. Describes it as an aching sensation. Also states he has a history of chronic abdominal issues has been followed by GI with no definite diagnosis. Has nausea but no vomiting. No fevers. No urinary symptoms. Has been taking naproxen with minimal relief. No diarrhea. No COVID-19 exposure. Patient states he did have a colonoscopy last April but has not followed up with GI since. TRAVEL OUTSIDE OF THE [place] IN LAST 30 DAYS: No - Related Data Allergies/Adverse Reactions: No Known Allergies Allergy (Unverified 09/27/20 21:40) Past Medical History - General Information source: Patient - Social History Smoking Status: Current Every Day Smoker Frequency of alcohol use: Occasional Drug Abuse: None Family History: Reviewed & Not Pertinent - Past Medical History Cardiac Medical History: Reports: Hx Hypercholesterolemia, Hx Hypertension Denies: Hx Coronary Artery Disease, Hx Heart Attack Pulmonary Medical History: Denies: Hx Asthma, Hx Bronchitis, Hx COPD, Hx Pneumonia Neurological Medical History: Reports: Hx Seizures - EPILEPSY 16 YEARS AGO WAS LAST SEIZURE. Denies: Hx Cerebrovascular Accident Renal/ Medical History: Denies: Hx Peritoneal Dialysis Musculoskeletal Medical History: Denies Hx Arthritis - Immunizations Hx Diphtheria, Pertussis, Tetanus Vaccination: Yes - UNSURE WHEN Review of Systems - Review of Systems Constitutional: No symptoms reported EENT: No symptoms reported Cardiovascular: No symptoms reported Respiratory: No symptoms reported Gastrointestinal: Abdominal pain, Nausea. denies: Diarrhea, Vomiting, Constipation Genitourinary: Flank pain Skin: No symptoms reported Neurological/Psychological: No symptoms reported -: Yes All other systems reviewed and negative Physical Exam - Vital signs Vitals: Temp Pulse Resp BP Pulse Ox 97.7 F 97 16 161/97 H 99 09/27/20 19:54 09/27/20 19:54 09/27/20 19:54 09/27/20 19:54 09/27/20 19:54 - Notes Notes: GENERAL: Mild acute distress, non-toxic appearance. HEAD: Normal with no signs of head trauma. EYES: PERRLA, EOMI, conjunctiva normal, no discharge. EARS: Hearing grossly intact. NOSE: Normal. THROAT: Oropharynx is normal. NECK: Normal range of motion, no tenderness, supple, no lymphadenopathy, No adenopathy, no JVD. CHEST: Clear breath sounds bilaterally. No wheezes, rales, or rhonchi. CARDIAC: Regular rate and rhythm. S1 and S2, without murmurs, gallops, or rubs. VASCULAR: No Edema. Peripheral pulses normal and equal in all extremities. ABDOMEN: Normal and soft with no tenderness, no masses or pulsatile masses. No organomegaly. Positive bowel sounds x4. No CVA tenderness noted bilaterally. GASTROINTESTINAL: Bowel sounds normal LYMPATHTIC: No lymphadenopathy noted. MUSCULOSKELETAL: Good range of motion of all major joints. Extremities without clubbing, cyanosis or edema. NEUROLOGICAL: Alert and oriented x 3. No focal sensory or strength deficits. Speech normal. Follows commands appropriately. PSYCHIATRIC: Normal Affect, judgement and mood. SKIN: Normal appearance with no rashes or lesions. - General General appearance: Appears well, Alert Course - Re-evaluation Re-evalutation: 09/27/20 23:52 Patient is afebrile, he is nontoxic-appearing, vital signs are stable. Reviewed all lab and CAT scan findings with patient. Discussed findings of fatty liver, diverticulosis, terminal ileum thickening. Counseled on diet restrictions, no fatty foods, no nuts, no seeds. Patient states he is followed by Dr. Rodriguez with a colonoscopy last April but has not seen him since. He is pain-free on exam. He is able to tolerate p.o. fluids. Take the Zofran as prescribed. Follow-up with primary care physician and Dr. Rodriguez, call tomorrow for follow-up appointments. Patient was given strict return to the emergency room guidelines. Return for any new or worsening symptoms. All questions were answered. Patient verbalized understanding and agrees with plan of care. 09/27/20 23:54 - Vital Signs Vital signs: Temp Pulse Resp BP Pulse Ox 97.9 F 87 16 127/72 H 97 09/27/20 22:52 09/27/20 22:52 09/27/20 22:52 09/27/20 22:52 09/27/20 22:52 - Laboratory Results Result Diagrams: 09/27/20 20:30 09/27/20 20:30 Laboratory Results Interpreted: 09/27/20 09/27/20 20:30 20:30 Lymph % (Auto) 51.9 H Absolute Lymphs (auto) 4.8 H Seg Neutrophils % 37.5 L Sodium 136.6 L Critical Laboratory Results Reviewed: No Critical Results - Radiology Results Critical Radiology Results Reviewed: No Critical Results Discharge - Discharge Clinical Impression: Diverticulosis, Fatty liver, Nausea Condition: Stable Disposition: HOME, SELF-CARE Instructions: Abdominal Pain ([facility]), Flank Pain ([facility]), Nausea or Vomiting, Nonspecific ([facility]) Additional Instructions: You have been seen in the Emergency Department (ED) for abdominal pain. Your evaluation did not identify a clear cause of your symptoms but was generally reassuring. Your CAT scan shows finding of diverticulosis and inflammation in the terminal ileum of your colon. You need to call Dr. Rodriguez outpatient follow-up appointment as soon as possible. Avoid any foods with nuts or seeds, no fatty or greasy foods. Please follow up with your doctor as soon as possible regarding today's emergent visit and the symptoms that are bothering you. Take the Zofran as needed for nausea. Return to the ED if your abdominal pain worsens or fails to improve, you develop bloody vomiting, bloody diarrhea, you are unable to tolerate fluids due to vomiting, fever greater than 101, or other symptoms that concern you. Referrals: LAYA GLYNN FNP-C [Primary Care Provider] - Follow up as needed JHOAN RODRIGUEZ MD [ACTIVE STAFF] - Follow up tomorrow (Call tomorrow for an outpa tient follow-up appointment.)
[2020-09-27] MEDS ORDERED: ONDANSETRON ODT 4 MG TAB (6 TAB/ER DISP) PO PRN (23:59)
== END 2020-09-28 00:32 | disposition home or self-care (01) ==
LOC: ER 19:48
DX: K57.90 Diverticulosis of intestine, part unspecified, without perforation or abscess without bleeding (principal); K76.0 Fatty (change of) liver, not elsewhere classified; R11.0 Nausea; R10.9 Unspecified abdominal pain; M54.5 Low back pain; F17.200 Nicotine dependence, unspecified, uncomplicated; I10 Essential (primary) hypertension; E78.00 Pure hypercholesterolemia, unspecified
CPT/HCPCS: 99285; 36415; 85025; 80048; 81001; 74176; S0119